=== PATIENT | male | born 1990 | race Caucasian/White ===

== ENCOUNTER 2023-04-16 01:36 | Emergency (ER) | payer MEDICAID, SELFPAY ==
[2023-04-16 01:40] VITALS: BP 162/92; PULSE 98; RESP 16; TEMP 36.1; O2SAT 96; BMI 34.7
--- NOTE | 2023-04-16 02:00 | CRLHL7_ITS ---
For Patients: As a result of the Century Cures Act, medical imaging exams and procedure reports are released immediately into your electronic medical record. You may view this report before your referring provider. If you have questions, please contact your health care provider. INDICATION: Right-sided abdominal pain. TECHNIQUE: CT abdomen and pelvis acquired with 98 cc Isovue 370 IV contrast. COMPARISON: None. FINDINGS: Lower chest: Right middle and bilateral lower lobe consolidation. Trace right pleural effusion. Liver: Unremarkable. Normal in size and attenuation. No suspicious masses. Gallbladder and bile ducts: Unremarkable. No stones or inflammation. No biliary ductal dilatation. Spleen: Unremarkable. Normal in size. No masses. Adrenal glands: Unremarkable. No nodules. Pancreas: Unremarkable. No mass or inflammation. Kidneys: Unremarkable. No suspicious masses, stones, or hydronephrosis. GI tract: Unremarkable. Normal in caliber. No evidence of obstruction. Normal appendix. Lymph nodes: No lymphadenopathy. Vasculature: Unremarkable. Omentum/Peritoneum/Abdominal Wall: Unremarkable. No free air or significant free fluid. Pelvis: Unremarkable. Bones: Unremarkable for age. IMPRESSION: 1. No acute abdominal or pelvic abnormality. 2. Right middle and bilateral lower lobe consolidation, likely representing a combination of atelectasis and infiltrates. Trace right pleural effusion. Please note that all CT scans at this facility use dose modulation, iterative reconstruction, and/or weight-based dosing when appropriate to reduce radiation dose to as low as reasonably achievable. Dictated by Jori Aggarwal MD @ 04/16/2023 3:25:39 AM (Electronically Signed)
[2023-04-16] MEDS: KETOROLAC 15 MG/ML inj IVP (02:10)
[2023-04-16 02:17] LABS: Lactate* 1.2 mmol/L (0.5-1.9)
[2023-04-16 02:19] LABS: Basophils Percent Auto 0.1 % (0.0-3.0); Eosinophils Percent Auto 1.7 % (0.0-7.0); Hematocrit 44.8 % (37.0-53.0); Hemoglobin* 15.6 gm/dL (13.5-17.5); Immature Granulocytes Pct Auto 0.8 %; Lymphocytes Percent Auto 15.3 % (20-44); Mean Corpuscular HGB Conc 35 gm/dL (32-36); Mean Corpuscular Hemoglobin 30 pg (26-34); Mean Corpuscular Volume 85 fL (80-100); Monocytes Percent Auto 10.9 % (0.0-11.0); Neutrophils Percent Auto 71.2 % (42.0-72.0); Platelet Count* 219 K/uL (140-440); RDW Coefficient of Variation % 12.6 % (11.5-15.5); Red Blood Count 5.29 m/uL (4.30-5.90); White Blood Count* 11.89 K/uL (4.50-11.00)
[2023-04-16 02:22] LABS: Slide Review Reflex No
--- NOTE | 2023-04-16 02:25 | ED.GENADULT ---
HPI - General Adult General Chief complaint: Abdominal Pain Stated complaint: Abdominal Pain - R side Time Seen by Provider: 04/16/23 01:49 Source: patient Mode of arrival: ambulatory Limitations: no limitations History of Present Illness HPI narrative: 32-year-old male presents the emergency department for evaluation of abdominal pain for the past 3 days. Reports the pain is up under the right rib/right mid abdomen area. It is not accompanied by vomiting. Denies nausea. Has also had a little bit of cough late last week that he reports has improved. No severe shortness of breath. No productive cough or fever. Did not improve with trial of Tylenol and Tums this evening. Denies associations with food but admittedly is having a hard time describing his symptoms to me. Denies trauma. No hematemesis or bloody stools. No history of pancreatitis, denies excessive alcohol use. Pain is achy and intermittent, seems to come in crampy waves by the way he is describing it. No dysuria or true back pain. Pain does radiate under the ribs a bit. No prior history of similar symptoms. No prior abdominal surgeries. Denies a family history of gallbladder disease or pancreatitis. No history of inflammatory bowel disease. States the pain was more bothersome today at about 3:00 p.m., was very bothersome for about a 1/2 hour and then has improved to about a 2/10, which it has been at for the last 10 hours. It is unclear what made him come to the emergency department in the middle of the night now. Past medical history benign per his report. No major long-term health problems. No prescription medications or allergies. Nonsmoker. ROS notable for the GI symptoms as above only, otherwise denies times 12 systems. Related Data Previous Rx's Medication Instructions Recorded levofloxacin 500 mg tablet 500 mg PO QHS 7 days #7 tabs 04/16/23 Allergies Allergy/AdvReac Type Severity Reaction Status Date / Time No Known Drug Allergies Allergy Verified 04/16/23 02:32 [facility] Social History Smoking Status: Never smoker Non-prescribed substance use: denies use Exam Narrative: Exam Narrative: Arrives not wearing any underwear with his genitals hanging out of his pants. Odd affect. Const: Vital Signs, click to edit/add: Vital Signs - 24 hr 04/16/23 01:40 Temperature 96.9 F L Pulse Rate [Left P ulse Oximeter] 98 Respiratory Rate 16 Blood Pressure [Ri ght Upper Arm] 162/92 H Pulse Oximetry 96 Oxygen Delivery Me thod Room Air Documenting provider has reviewed patient's vital signs: yes Common normals: no apparent distress General appearance: cooperative HENMT: Common normals: normocephalic Head and scalp: normocephalic Face and sinus: normal facial exam Mouth: oral and palatal mucosa normal Throat: posterior oropharynx normal Eye: Common normals: conjunctivae normal General eye: normal appearance of both eyes Conjunctiva: conjunctiva(e) normal Neck & C-Spine: Common normals: no lymphadenopathy Resp: Common normals: normal respiratory effort and clear to auscultation bilaterally Effort & inspection: able to speak in complete sentences Auscultation: clear to auscultation bilaterally Cardio: Common normals: regular rate, regular rhythm, S1 normal heart sound, S2 normal heart sound and no murmurs Rate: regular rate Rhythm: regular rhythm Heart sounds: S1 normal and S2 normal GI: Common normals: Normal to inspection, nondistended, normoactive bowel sounds present, soft to palpation, no hepatosplenomegaly and no masses Palpation: soft and no hepatosplenomegaly Other: No rebound tenderness or guarding. Negative Abdi sign. No CVA tenderness. Liver and spleen are not enlarged. No obvious mass. : Common normals: no CVA tenderness Bladder/kidney exam: no CVA tenderness Back & Pelvis: Common normals: no CVA tenderness Extremity: Common normals: normal to inspection Psych: Attitude: calm Insight: fair Judgement: fair Skin: Common normals: no rashes or lesions noted General skin exam: no rashes or lesions noted Course Course ED Course: Intermittent abdominal pain, under right rib suspicious for gallbladder disease verses diaphragmatic irritation from respiratory disease, pancreatitis, gastroenteritis, gastritis, possible on presentation of kidney stone, among others. Am concerned that his insight does not seem fully accurate, therefore I recommend labs come imaging. Will give Toradol 15 mg IV x1 and await findings. Reevaluation(s) Time of Reevaluation #1: 03:37 Reevaluation #1: Symptoms improved with Toradol. Discussed CT findings of right lower lobe pneumonia, otherwise no significant intra-abdominal process. Labs show some mild leukocytosis and a possible bladder infection but no other major intra-abdominal processes. This is reassuring. I recommended treatment of the pneumonia with Levaquin. Will give 750 p.o. x1 here and continue on 500 mg at bedtime nightly for another week. Counseled on Tylenol and ibuprofen for pain control. Alarm symptoms reviewed that would warrant ED presentation. All questions answered. Vital Signs Vital signs: Initial Vital Signs Temperature 96.9 F L 04/16/23 01:40 Temperature Source Temporal Artery Scan 04/16/23 01:40 Pulse Rate 98 04/16/23 01:40 Respiratory Rate 16 04/16/23 01:40 Blood Pressure 162/92 H 04/16/23 01:40 Blood Pressure Mean 115 H 04/16/23 01:40 Blood Pressure Position Sitting 04/16/23 01:40 Pulse Oximetry 96 04/16/23 01:40 Oxygen Delivery Method Room Air 04/16/23 01:40 Vital Signs Temperature 96.9 F L 04/16/23 01:40 Pulse Rate 98 04/16/23 01:40 Respiratory Rate 16 04/16/23 01:40 Blood Pressure 162/92 H 04/16/23 01:40 Pulse Oximetry 96 04/16/23 01:40 Oxygen Delivery Method Room Air 04/16/23 01:40 Temperature 96.9 F L 04/16/23 01:40 Pulse Rate 98 04/16/23 01:40 Respiratory Rate 16 04/16/23 01:40 Blood Pressure 162/92 H 04/16/23 01:40 Pulse Oximetry 96 04/16/23 01:40 Oxygen Delivery Method Room Air 04/16/23 01:40 Medications Administered Medications: Generic Name Dose Route Start Last Admin Trade Name Freq PRN Reason Stop Dose Admin Ketorolac Tromethamine 15 mg 04/16/23 02:00 04/16/23 02:10 Ketorolac 15 Mg/Ml Inj IVP 04/16/23 02:01 15 mg ONCE ONE Administration Medical Decision Making Lab Data Lab results reviewed: Yes I reviewed the patient's lab results Lab results narrative: Mild leukocytosis, suspicious for mild bladder infection. Negative COVID. Negative intra-abdominal finding. Labs: Lab Results 04/16/23 04/16/23 Range/Units 02:00 02:10 WBC 11.89 H (4.50-11.00) K/uL RBC 5.29 (4.30-5.90) m/uL Hgb 15.6 (13.5-17.5) gm/dL Hct 44.8 (37.0-53.0) % MCV 85 (80-100) fL MCH 30 (26-34) pg MCHC 35 (32-36) gm/dL RDW Coeff of Amy 12.6 (11.5-15.5) % Plt Count 219 (140-440) K/uL Neut % (Auto) 71.2 (42.0-72.0) % Lymph % (Auto) 15.3 L (20-44) % [place] % (Auto) 10.9 (0.0-11.0) % Eos % (Auto) 1.7 (0.0-7.0) % Baso % (Auto) 0.1 (0.0-3.0) % Neut # (Auto) 8.50 H (1.7-7.0) K/uL Lymph # (Auto) 1.80 (0.90-2.90) K/uL [place] # (Auto) 1.30 H (0.00-0.90) K/UL Eos # (Auto) 0.20 (0.00-0.50) K/uL Baso # (Auto) 0.00 (0.00-0.30) K/uL Abs Immat Gran (auto) 0.10 (0.00-0.30) K/uL Imm/Tot Granulo (auto) 0.8 % Sodium 139 (135-149) mmol/L Potassium 3.5 L (3.6-5.1) mmol/L Chloride 105 (96-114) mmol/L Carbon Dioxide 24 (20-32) mmol/L Anion Gap 10 (7-15) mEq/L BUN 16 (5-24) mg/dL Creatinine 0.7 (0.5-1.5) mg/dL Estimated Creat Clear 135.45 Estimated GFR 125 ml/min Glucose 108 (60-115) mg/dL Lactate 1.2 (0.5-1.9) mmol/L Calcium 9.3 (8.4-10.6) mg/dL Total Bilirubin 1.9 H (0.1-1.5) mg/dL AST 34 (12-35) U/L ALT 38 (4-50) U/L Alkaline Phosphatase 64 (40-150) U/L C-Reactive Protein 8.7 H (0.5-1.0) mg/dL Total Protein 8.2 (6.0-8.3) g/dL Albumin 4.4 (3.3-5.0) g/dL Lipase 85 (23-300) U/L Urine Color Moodus A (Yellow) Urine Appearance Clear (Clear) Urine pH 5.0 (5.0-8.5) Ur Specific [place] >= 1.030 (1.000-1.030) Urine Protein 2+ A (Negative) Urine Glucose (UA) Negative (Negative) Urine Ketones 1+ A (Negative) Urine Blood Trace-intact A (Negative) Urine Nitrite Positive A (Negative) Urine Bilirubin 2+ A (Negative) Urine Urobilinogen 0.2 (0.2-1.0) Ur Leukocyte Esterase Negative (Negative) Urine RBC 2-5 A (0-2) Urine WBC 2-5 (0-5) Ur Squamous Epith Cells Few (None-Few) Urine Bacteria Few A (None) Urine Mucus Moderate A (None) SARS-CoV-2 (PCR) Negative SARS-CoV-2 (Negative) Influenza Type A (PCR) Negative PCR FLU A (Negative) Influenza Type B (PCR) Negative PCR FLU B (Negative) RSV (PCR) Negative PCR RSV (Negative) Imaging Data CT scan - abdomen: Attestation: I have reviewed the pertinent imaging results. My impression: Right lower lobe pneumonia, abdomen normal Radiologist's impression: IMPRESSION: 1. No acute abdominal or pelvic abnormality. 2. Right middle and bilateral lower lobe consolidation, likely representing a combination of atelectasis and infiltrates. Trace right pleural effusion. Discharge Plan Discharge Clinical Impression: Right lower lobe pneumonia Patient Disposition: Home, Self-Care Condition: Stable Instructions: Community Acquired Pneumonia (ED) Additional Instructions: As we discussed, there were no major intra-abdominal findings. It looks like you have a pneumonia in your lower right lung. This presses on the diaphragm and causes symptoms very similar to gallbladder attacks. There also may be a mild bladder infection. The antibiotic that we will use to treat the pneumonia will cover both infections very well. It is important a drink lots of water for the next few days. You have been given your 1st dose of your antibiotic here in the emergency department. Continue taking additional doses once daily at bedtime for the next week. I have sent additional medications to your pharmacy. You will likely cough for about another month. He will likely have some intermittent pain for about 2 weeks. For pain, use Tylenol 1000 mg every 6 hours and/or ibuprofen 600 mg every 6 hours for pain. Come back to the emergency department if you have severe shortness of breath, persistently coughing up blood, or other red flag type symptoms. Activity Level: Activity as Tolerated Discharge Diet: Regular Prescriptions: New levofloxacin 500 mg tablet 500 mg PO QHS 7 Days Qty: 7 0RF Follow Up/Referrals: Provider,Not a Local [Primary Care Provider] - Stand Alone Forms: [employer] Info Instructions
[2023-04-16 02:48] LABS: PCR FLU A Negative PCR FLU A (Negative); PCR FLU B Negative PCR FLU B (Negative); PCR RSV Negative PCR RSV (Negative); SARS PCR* Negative SARS-CoV-2 (Negative)
[2023-04-16 02:48] LABS: Albumin* 4.4 g/dL (3.3-5.0); Appearance Urine Clear (Clear); Bilirubin Urine 2+ (Negative); Blood Urine Trace-intact (Negative); Chloride* 105 mmol/L (96-114); Color Urine Orange (Yellow); Glucose Urine Negative (Negative); Ketones Urine 1+ (Negative); Leukocyte Esterase Urine Negative (Negative); Nitrite Urine Positive (Negative); Protein Urine 2+ (Negative); Specific Gravity Urine >= 1.030 (1.000-1.030); Urobilinogen Urine 0.2 (0.2-1.0)
[2023-04-16 02:49] LABS: Potassium* 3.5 mmol/L (3.6-5.1); Sodium* 139 mmol/L (135-149)
[2023-04-16 02:51] LABS: Bilirubin Total* 1.9 mg/dL (0.1-1.5); Creatinine* 0.7 mg/dL (0.5-1.5); Est. Creatinine Clearance* 135.45; Estimated Glomerular Filt Rate 125 ml/min
[2023-04-16 02:52] LABS: Alanine Aminotransferase* 38 U/L (4-50); Alkaline Phosphatase* 64 U/L (40-150); Anion Gap 10 mEq/L (7-15); Aspartate Amino Transferase* 34 U/L (12-35); Blood Urea Nitrogen* 16 mg/dL (5-24); Calcium* 9.3 mg/dL (8.4-10.6); Carbon Dioxide* 24 mmol/L (20-32); Glucose* 108 mg/dL (60-115); Lipase* 85 U/L (23-300); Total Protein* 8.2 g/dL (6.0-8.3)
[2023-04-16 02:55] LABS: C Reactive Protein* 8.7 mg/dL (0.5-1.0)
[2023-04-16 02:59] LABS: Squamous Epithelial Cell Urine Few (None-Few)
[2023-04-16 03:00] LABS: Bacteria Urine Few; Mucus Urine Moderate
[2023-04-16] MEDS: levoFLOXacin 750 MG TABLET PO (03:49)
[2023-04-16 03:50] VITALS: BP 148/58; PULSE 64; RESP 16; O2SAT 99
== END 2023-04-16 03:53 | disposition home or self-care (01) ==
PROVIDERS: Emergency Provider Family Medicine
DX: J18.9 Pneumonia, unspecified organism (principal)
CPT/HCPCS: 36415; 74177; 80053; 81003; 81015; 83605; 83690; 85025; 86140; 87086; 87631; 96374; 99284; 99285; A9270; J1885; Q9967

== ENCOUNTER 2023-05-09 10:17 | Emergency (ER) | payer MEDICAID, SELFPAY ==
[2023-05-09] VITALS (67 sets, daily range): BP systolic 115–138; BP diastolic 84–109; PULSE 82–95; RESP 16; TEMP 36.3; O2SAT 86–100; BMI 33.9
--- NOTE | 2023-05-09 11:06 | US_ITS ---
INDICATION: RIGHT LEG SWELLING. TECHNIQUE: GRAYSCALE, COLOR DOPPLER AND POWER DOPPLER EVALUATION OF THE RIGHT LOWER EXTREMITY VENOUS STRUCTURES. COMPARISON: NONE. FINDINGS: EXTENSIVE OCCLUSIVE HYPOECHOIC CLOT IS PRESENT THROUGHOUT THE RIGHT LOWER EXTREMITY INVOLVING THE RIGHT EXTERNAL ILIAC VEIN, COMMON FEMORAL VEIN, FEMORAL VEIN, DEEP FEMORAL VEIN, POPLITEAL VEIN, PERONEAL VEINS AND POSTERIOR TIBIAL VEINS. LACK OF DOPPLER FLOW AND LACK OF COMPRESSIBILITY. LEFT COMMON FEMORAL VEIN IS PATENT. PROXIMAL GREATER SAPHENOUS VEIN IS OCCLUDED. IMPRESSION: EXTENSIVE DVT RIGHT LOWER EXTREMITY INCLUDING INVOLVEMENT OF THE EXTERNAL ILIAC VEIN. CT HAS BEEN SCHEDULED FOR FURTHER EVALUATION. THE REFERRING PROVIDER WAS NOTIFIED BY THE FEDERAL JUDGE AT 11:25 A.M..
--- NOTE | 2023-05-09 11:15 | ED.GENADULT ---
[facility] - General Adult General Date Seen: 05/09/23 Chief complaint: Lower Extremity Swelling Stated complaint: R leg swelling- wants a CT Time Seen by Provider: 05/09/23 10:54 Source: patient Mode of arrival: ambulatory Limitations: no limitations History of Present Illness HPI narrative: Patient is a 32-year-old male with no pertinent medical problems presenting for right leg pain. He states he 1st injured the right ankle a month ago when he slipped and fell. After that he had swelling of the leg but the swelling did improve. With the past week he noticed increased swelling to the right leg and states now swelling is the worst it has ever been. There is some mild thigh pain but he attributes that to decompensation after not walking much due to the injured ankle. States the pain is relatively mild and he does have full range of motion of the right leg. No history of blood clots. Denies chest pain or shortness of breath. Denies numbness. No other concerns noted at this time. Related Data Home Medications Medication Instructions Recorded Confirmed No Known Home Medications 05/09/23 05/09/23 Allergies Allergy/AdvReac Type Severity Reaction Status Date / Time No Known Drug Allergies Allergy Verified 05/09/23 12:18 Review of Systems Narrative: Pertinent systems reviewed and negative unless stated in HPI PFSH PFS Social History Smoking Status: Never smoker Do you use any of these nicotine containing products: None Second hand tobacco smoke exposure: No How often do you have a drink containing alcohol: never How often do you have six or more drinks on one occasion: Never AUDIT-C Alcohol total score: 0 Non-prescribed substance use: denies use service: No Exam Narrative: Exam Narrative: Const: Well-nourished, Well-developed, in no distress Eyes: PERRL, no conjunctival injection, and symmetrical lids HENT: Atraumatic external nose and ears. Moist mucous membranes. CV: Pulses +2 bilateral lower extremity MSK:Extremities w/o deformity, Normal Active ROM, diffuse right lower extremity swelling compared to the left Skin: Warm, Dry. No rashes or lesions. Neuro: Normal Muscle tone, No focal neurological deficits. Psych: Awake, Alert, & Oriented x3. Appropriate mood and affect. Const: Vital Signs, click to edit/add: Vital Signs - 24 hr 05/09/23 10:23 Temperature 97.4 F L Pulse Rate [Right Pulse Oximeter] 95 Respiratory Rate 16 Blood Pressure [Ri ght Upper Arm] 138/88 Pulse Oximetry 97 Oxygen Delivery Me thod Room Air Course Vital Signs Vital signs: Initial Vital Signs Temperature 97.4 F L 05/09/23 10:23 Temperature Source Temporal Artery Scan 05/09/23 10:23 Pulse Rate 95 05/09/23 10:23 Respiratory Rate 16 05/09/23 10:23 Blood Pressure 138/88 05/09/23 10:23 Blood Pressure Mean 104 05/09/23 10:23 Blood Pressure Position Sitting 05/09/23 10:23 Pulse Oximetry 97 05/09/23 10:23 Oxygen Delivery Method Room Air 05/09/23 10:23 Vital Signs Temperature 97.4 F L 05/09/23 10:23 Pulse Rate 95 05/09/23 10:23 Respiratory Rate 16 05/09/23 10:23 Blood Pressure 138/88 05/09/23 10:23 Pulse Oximetry 97 05/09/23 10:23 Oxygen Delivery Method Room Air 05/09/23 10:23 Temperature 97.4 F L 05/09/23 10:23 Pulse Rate 95 05/09/23 10:23 Respiratory Rate 16 05/09/23 10:23 Blood Pressure 138/88 05/09/23 10:23 Pulse Oximetry 97 05/09/23 10:23 Oxygen Delivery Method Room Air 05/09/23 10:23 Medications Administered Medications: Generic Name Dose Route Start Last Admin Trade Name Freq PRN Reason Stop Dose Admin Heparin Sodium/Dextrose 25,000 unit in 500 mls @ 0 mls/hr 05/09/23 13:15 05/09/23 13:31 Heparin IV 1,500 unit/hr .Q0M BARRETT 30 mls/hr Administration Protocol Per Protocol Discontinued Medications Generic Name Dose Route Start Last Admin Trade Name Freq PRN Reason Stop Dose Admin Heparin Sodium (Porcine) 7,600 unit 05/09/23 13:08 05/09/23 13:30 Heparin 5,000 Unit/0.5 Ml Inj 80 unit/kg (7600 unit) 05/09/23 13:09 7,600 unit IVP Administration ONCE ONE Medical Decision Making MDM Narrative Medical decision making narrative: Patient is a 32-year-old male presenting for right leg swelling. So once been on for a week. No history of clotting disorders. Ultrasound the right lower extremity was ordered. It returned showing extensive clot burden and every significant vein in the right lower extremity. There is able to ultrasound up to the getting of the internal iliac vein in saw clot burden up there too. When I spoke to him he said he had some chest pain mildly few days ago that went away quickly. Or he has not heard having symptoms of pulmonary embolism with his history I am concerned. Will order PE study. I also spoke to the radiologist about to finish evaluating this blood clot and was recommended do a CT with IV contrast. This was ordered. It shows bilateral subsegmental pulmonary emboli along with clot burden seen in the right main pulmonary artery. Imaging of the veins shows clot burden all way up into the distal IVC. Considering his significant amount of clot burden I did speak to [facility]. I spoke to their grain combine driver Dr. Winter who recommend starting the patient on heparin was not think he needs an IV filter at this time. She does think get is it is best interest to be transferred to a higher level of care in case he needs further intervention. Patient is agreeable to this plan. Also ordered CBC and is BMP along with coags. These returned showing no concerning findings. I spoke to the hospitalist Dr. Bonilla who accepted the patient for transfer. Lab Data Labs: Lab Results 05/09/23 Range/Units 13:08 WBC 8.38 (4.50-11.00) K/uL RBC 4.93 (4.30-5.90) m/uL Hgb 13.5 (13.5-17.5) gm/dL Hct 41.0 (37.0-53.0) % MCV 83 (80-100) fL MCH 27 (26-34) pg MCHC 33 (32-36) gm/dL RDW Coeff of Amy 13.0 (11.5-15.5) % Plt Count 367 (140-440) K/uL Neut % (Auto) 71.2 (42.0-72.0) % Lymph % (Auto) 15.0 L (20-44) % [place] % (Auto) 10.1 (0.0-11.0) % Eos % (Auto) 3.5 (0.0-7.0) % Baso % (Auto) 0.1 (0.0-3.0) % Neut # (Auto) 5.96 (1.7-7.0) K/uL Lymph # (Auto) 1.30 (0.90-2.90) K/uL [place] # (Auto) 0.80 (0.00-0.90) K/UL Eos # (Auto) 0.29 (0.00-0.50) K/uL Baso # (Auto) 0.01 (0.00-0.30) K/uL Abs Immat Gran (auto) 0.01 (0.00-0.30) K/uL Imm/Tot Granulo (auto) 0.1 % INR 1.13 H (0.91-1.10) APTT 38 H (23-33) Seconds Sodium 137 (135-149) mmol/L Potassium 4.1 (3.6-5.1) mmol/L Chloride 101 (96-114) mmol/L Carbon Dioxide 27 (20-32) mmol/L Anion Gap 9 (7-15) mEq/L BUN 15 (5-24) mg/dL Creatinine 0.8 (0.5-1.5) mg/dL Estimated Creat Clear 118.52 Estimated GFR 120 ml/min Glucose 106 (60-115) mg/dL Calcium 9.3 (8.4-10.6) mg/dL Imaging Data Venous US: Radiologist's impression: EXTENSIVE DVT RIGHT LOWER EXTREMITY INCLUDING INVOLVEMENT OF THE EXTERNAL ILIAC VEIN. CT HAS BEEN SCHEDULED FOR FURTHER EVALUATION. THE REFERRING PROVIDER WAS NOTIFIED BY THE BAKE ROOM WORKER AT 11:[address] scan abdomen and pelvis: Radiologist's impression: EXTENSIVE DEEP VENOUS THROMBOSIS WITHIN THE RIGHT THIGH EXTENDING FROM THE FEMORAL VEIN CEPHALAD INTO THE RIGHT EXTERNAL ILIAC VEIN, RIGHT COMMON ILIAC VEIN AND DISTAL ASPECT OF THE IVC. NO COMPRESSIVE MASS IS PRESENT. CTA chest: Radiologist's impression: SMALL BILATERAL PULMONARY EMBOLI ARE PRESENT WITHIN THE SUBSEGMENTAL LOWER LOBE VESSELS BILATERALLY. IN ADDITION, THERE IS PULMONARY EMBOLISM WITHIN THE MAIN RIGHT PA. THE RV/LV RATIO IS LESS THAN 1. NO REFLUX OF CONTRAST INTO THE INFERIOR VENA CAVA. THERE IS NO HIATAL HERNIA. NORMAL LYMPH NODES IN THE THORAX. NO THYROID LESION WITHIN THE VISUALIZED UPPER MEDIASTINUM. LINEAR DENSITIES ARE PRESENT WITHIN BOTH LOWER LOBES, THE LINGULA AND RIGHT MIDDLE LOBE. NO PLEURAL EFFUSION. NO PNEUMOTHORAX. NO CHF. NO FRACTURE IS PRESENT. IMPRESSION: BILATERAL PULMONARY EMBOLI. DEPENDENT AREAS OF ATELECTASIS BILATERALLY. NO EVIDENCE OF RIGHT HEART STRAIN. Discharge Plan Discharge Clinical Impression: DVT (deep venous thrombosis) Qualifiers: DVT location: lower extremity Affected thrombotic vein of extremity: other lower extremity vein Chronicity: unspecified Laterality: right Qualified Code(s): I82.491 - Acute embolism and thrombosis of other specified deep vein of right lower extremity Pulmonary embolism Qualifiers: Pulmonary embolism type: multiple subsegmental (without acute cor pulmonale) Qualified Code(s): I26.94 - Multiple subsegmental pulmonary emboli without acute cor pulmonale Patient Disposition: [facility] Condition: Stable Prescriptions: No Action No Known Home Medications Follow Up/Referrals: Provider,Not a Local [Primary Care Provider] - Stand Alone Forms: [employer] Info Instructions
--- NOTE | 2023-05-09 11:37 | CT_ITS ---
INDICATION: EXTENSIVE DVT COMPARISON: VENOUS ULTRASOUND STUDY EARLIER TODAY TECHNIQUE: POSTCONTRAST CT ABDOMEN AND PELVIS. 95 ML ISOVUE 370 INTRAVENOUS CONTRAST. FINDINGS: EXTENSIVE DEEP VENOUS THROMBOSIS IS PRESENT WITHIN THE RIGHT COMMON ILIAC VEIN EXTENDING CAUDAL INTO THE COMMON FEMORAL, SUPERFICIAL FEMORAL AND DEEP FEMORAL VEINS ALONG WITH THE EXTERNAL ILIAC VEIN. CLOT ALSO APPEARS TO EXTEND INTO THE DISTAL ASPECT OF THE IVC, JUST ABOVE THE BIFURCATION. THE LEFT ILIAC VENOUS SYSTEM APPEARS PATENT. NO HYDRONEPHROSIS. KIDNEYS NORMAL. NORMAL ADRENAL GLANDS. NORMAL PANCREAS. THE SPLEEN IS NORMAL. NORMAL LIVER. GALLBLADDER INCOMPLETELY DISTENDED. NO FREE AIR, FREE FLUID OR ADENOPATHY. MILD INFLAMMATORY CHANGES ARE PRESENT WITHIN THE RIGHT UPPER THIGH ASSOCIATED WITH DVT. BLADDER NORMAL. NO PELVIC MASS. THERE IS NO COMPRESSIVE LESION. NO BOWEL OBSTRUCTION. NO EVIDENCE OF APPENDICITIS. NORMAL OSSEOUS STRUCTURES. IMPRESSION: EXTENSIVE DEEP VENOUS THROMBOSIS WITHIN THE RIGHT THIGH EXTENDING FROM THE FEMORAL VEIN CEPHALAD INTO THE RIGHT EXTERNAL ILIAC VEIN, RIGHT COMMON ILIAC VEIN AND DISTAL ASPECT OF THE IVC. NO COMPRESSIVE MASS IS PRESENT. CALLED TO DR. EISENBERG AT [phone].
--- NOTE | 2023-05-09 11:37 | CT_ITS ---
INDICATION: EXTENSIVE LOWER EXTREMITY DVT COMPARISON: ULTRASOUND VENOUS STUDY EARLIER TODAY TECHNIQUE: CTA CHEST PERFORMED AFTER THE INTRAVENOUS ADMINISTRATION OF 95 ML ISOVUE 370 INTRAVENOUS CONTRAST. FINDINGS: SMALL BILATERAL PULMONARY EMBOLI ARE PRESENT WITHIN THE SUBSEGMENTAL LOWER LOBE VESSELS BILATERALLY. IN ADDITION, THERE IS PULMONARY EMBOLISM WITHIN THE MAIN RIGHT PA. THE RV/LV RATIO IS LESS THAN 1. NO REFLUX OF CONTRAST INTO THE INFERIOR VENA CAVA. THERE IS NO HIATAL HERNIA. NORMAL LYMPH NODES IN THE THORAX. NO THYROID LESION WITHIN THE VISUALIZED UPPER MEDIASTINUM. LINEAR DENSITIES ARE PRESENT WITHIN BOTH LOWER LOBES, THE [place] AND RIGHT MIDDLE LOBE. NO PLEURAL EFFUSION. NO PNEUMOTHORAX. NO CHF. NO FRACTURE IS PRESENT. IMPRESSION: BILATERAL PULMONARY EMBOLI. DEPENDENT AREAS OF ATELECTASIS BILATERALLY. NO EVIDENCE OF RIGHT HEART STRAIN. CALLED TO DR. FAINA Patel 24.
[2023-05-09 13:17] LABS: Hemoglobin* 13.5 gm/dL (13.5-17.5); Mean Corpuscular HGB Conc 33 gm/dL (32-36); Mean Corpuscular Hemoglobin 27 pg (26-34); Mean Corpuscular Volume 83 fL (80-100); Neutrophils Percent Auto 71.2 % (42.0-72.0); Platelet Count* 367 K/uL (140-440); Red Blood Count 4.93 m/uL (4.30-5.90); White Blood Count* 8.38 K/uL (4.50-11.00)
[2023-05-09 13:18] LABS: Basophils Absolute Auto 0.01 K/uL (0.00-0.30); Basophils Percent Auto 0.1 % (0.0-3.0); Eosinophils Absolute Auto 0.29 K/uL (0.00-0.50); Eosinophils Percent Auto 3.5 % (0.0-7.0); Immature Granulocytes Abs Auto 0.01 K/uL (0.00-0.30); Immature Granulocytes Pct Auto 0.1 %; Monocytes Percent Auto 10.1 % (0.0-11.0); Neutrophils Absolute Auto 5.96 K/uL (1.7-7.0)
[2023-05-09 13:24] LABS: Slide Review Reflex No
[2023-05-09] MEDS: HEPARIN 5,000 UNIT/0.5 ML INJ 7600 UNIT IVP (13:30)
[2023-05-09] MEDS: HEPARIN 25,000 UNIT/500 ML BAG 30 UNIT IV (13:31)
[2023-05-09 13:41] LABS: Chloride* 101 mmol/L (96-114); Potassium* 4.1 mmol/L (3.6-5.1); Sodium* 137 mmol/L (135-149)
[2023-05-09 13:44] LABS: Anion Gap 9 mEq/L (7-15); Carbon Dioxide* 27 mmol/L (20-32); Creatinine* 0.8 mg/dL (0.5-1.5); Est. Creatinine Clearance* 118.52; Estimated Glomerular Filt Rate 120 ml/min
[2023-05-09 13:45] LABS: Blood Urea Nitrogen* 15 mg/dL (5-24); Calcium* 9.3 mg/dL (8.4-10.6); Glucose* 106 mg/dL (60-115)
[2023-05-09 13:46] LABS: INR 1.13 (0.91-1.10); Prothrombin Time 15.3 Seconds
[2023-05-09 13:47] LABS: Partial Thromboplastin Time* 38 Seconds (23-33)
--- NOTE | 2023-05-09 13:48 | ED.NURSE ---
Pulse found via doppler in RLE
[2023-05-09 15:46] LABS: Troponin, Point-of-Care* 0.01 ng/ml (0.01-0.04)
[2023-05-09 20:42] LABS: Partial Thromboplastin Time* 133 Seconds (23-33)
== END 2023-05-09 21:16 | disposition short-term general hospital (02) ==
PROVIDERS: Emergency Provider Student in an Organized Health Care Education/Training Program
DX: I82.401 Acute embolism and thrombosis of unspecified deep veins of right lower extremity (principal); I26.99 Other pulmonary embolism without acute cor pulmonale
CPT/HCPCS: 36415; 71275; 74177; 80048; 84484; 85025; 85027; 85610; 85730; 93005; 93971; 94761; 96374; 99284; 99285; J1644; Q9967

== ENCOUNTER 2023-05-09 21:07 | Outpatient (CLI) | payer MEDICAID, SELFPAY | END 2023-05-09 21:08 | disposition home or self-care (01) | LOC: AMB 05-11 10:58 | PROVIDERS: Visit Provider Family Medicine | DX: I26.99 Other pulmonary embolism without acute cor pulmonale (principal); I82.409 Acute embolism and thrombosis of unspecified deep veins of unspecified lower extremity | CPT/HCPCS: A0425; A0426 ==

== ENCOUNTER 2023-12-12 14:44 | Emergency (ER) | payer MEDICAID, SELFPAY ==
[2023-12-12] VITALS (16 sets, daily range): BP systolic 121–170; BP diastolic 83–103; PULSE 53–83; RESP 18; TEMP 36.5; O2SAT 94–99; BMI 33.9
--- NOTE | 2023-12-12 15:03 | ED.CHESTPAIN ---
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 He then has been off of his Eliquis for approximately 1 month. He thin had a provoked DVT CT when he had fracture of his toes and ankle injury on the right foot and did not seek medical attention he states. After injury to his ankle he also experienced a bout of COVID. He had initially noted swelling after the injury that got better and then suddenly got much worse- He ended up having extensive DVT into his groin up to the lower IVC in April 2023. This was associated with PE. He was started on heparin and transferred to [place]. Since that time patient had been on Eliquis up until a month ago. He was told to stop any is scheduled for lupus anticoagulant draw on Sunday. Arvin notes the onset of some left-sided chest discomfort approximately 4 days ago. He states that on day 2 the pain was actually worse but now it has been improving. He is not short of breath, has not had a cough, no fever or chills and has not been experiencing any increased fatigue or shortness of breath with exertion. In fact, he states he walked down town from his home and had no problem. Elisabeth hines cannot recall any activity or injury that may have caused this. He notes that he when he moves the pain seems to be a little bit worse. When he takes a deep breath it does not increase the discomfort. He has had no history of IV drug use, pericarditis, fevers. He does not think that his right lower leg is swollen. States that it was swollen up until about 2 months ago. Denies pain in his leg or redness. Related Data Home Medications ?Medication ?Instructions ?Recorded ?Confirmed No Known Home Medications 05/09/23 05/09/23 Allergies Allergy/AdvReac Type Severity Reaction Status Date / Time No Known Drug Allergies Allergy Verified 05/09/23 12:18 Review of Systems Status of ROS Reports: 10 or more systems reviewed and unremarkable except as noted in History and below Const Denies: fever, chills or fatigue Eyes Denies: change in vision ENMT Denies: throat pain, neck pain or nasal congestion Cardio Reports: chest pain; Denies: palpitations, edema, swelling of feet/ankles, lightheadedness or shortness of breath with exertion Resp Denies: shortness of breath or cough GI Denies: abdominal pain, nausea or vomiting Musculo Denies: neck pain Integ/Breast Denies: rash, itching or redness Endo Denies: fatigue PFSH PFSH Social History Smoking Status: Never smoker Do you use any of these nicotine containing products: None Second hand tobacco smoke exposure: No How often do you have a drink containing alcohol: never How often do you have six or more drinks on one occasion: Never AUDIT-C Alcohol total score: 0 Non-prescribed substance use: denies use service: No Exam Narrative Exam Narrative: Arvin is alert and oriented. Very pleasant young man in no acute distress. External ears eyes nose clear. Heart with a regular rate and rhythm without murmur or rub. Lungs are clear in all lung [place]. Palpation over the anterior and lateral chest wall on the left does not yield significant discomfort. Abdomen soft nontender. Lower extremities without significant edema. No calf tenderness with palpation. Moving all extremities. Const Vital Signs, click to edit/add: Vital Signs - 24 hr 12/12/23 14:48 12/12/23 15:11 12/12/23 15:15 Temperature 97.7 F Pulse Rate 75 64 Pulse Rate [Pulse Oximeter] 66 Respiratory Rate 18 Blood Pressure Blood Pressure [Right Upper Arm] 170/103 H Pulse Oximetry 99 96 96 Oxygen Delivery Method Room Air 12/12/23 15:30 12/12/23 15:32 12/12/23 15:45 Temperature Pulse Rate 59 L 78 Pulse Rate [Pulse Oximeter] Respiratory Rate Blood Pressure 133/94 H Blood Pressure [Right Upper Arm] Pulse Oximetry 98 94 Oxygen Delivery Method 12/12/23 16:00 12/12/23 16:40 12/12/23 16:41 Temperature Pulse Rate 77 83 58 L Pulse Rate [Pulse Oximeter] Respiratory Rate Blood Pressure 141/85 H Blood Pressure [Right Upper Arm] Pulse Oximetry 96 95 96 Oxygen Delivery Method 12/12/23 16:45 12/12/23 17:00 12/12/23 17:01 Temperature Pulse Rate 76 75 53 L Pulse Rate [Pulse Oximeter] Respiratory Rate Blood Pressure 130/93 H Blood Pressure [Right Upper Arm] Pulse Oximetry 95 95 95 Oxygen Delivery Method 12/12/23 17:02 12/12/23 17:16 12/12/23 17:30 Temperature Pulse Rate 65 66 61 Pulse Rate [Pulse Oximeter] Respiratory Rate Blood Pressure 121/83 Blood Pressure [Right Upper Arm] Pulse Oximetry 96 96 95 Oxygen Delivery Method 12/12/23 17:32 Temperature Pulse Rate 68 Pulse Rate [Pulse Oximeter] Respiratory Rate Blood Pressure 128/83 Blood Pressure [Right Upper Arm] Pulse Oximetry 96 Oxygen Delivery Method Documenting provider has reviewed patient's vital signs: yes Course Course ED Course: Differential diagnosis includes but is not limited to recurrent PE, pericarditis, angina, pneumonia, musculoskeletal discomfort. Will place IV and draw labs to include CBC, apprehensive panel, troponin, magnesium, D-dimer chest x-ray and EKG. EKG is reassuring at this time. Reevaluation(s) Reevaluation #1: Labs are reassuring to include a normal D-dimer, negative troponin. Will do a trial of Toradol 15 mg IV. Reevaluation #2: Patient has had resolution of his discomfort. Blood pressure has now normalized as well. Vital Signs Vital signs: Initial Vital Signs Temperature 97.7 F 12/12/23 14:48 Temperature Source Temporal Artery Scan 12/12/23 14:48 Pulse Rate 66 12/12/23 14:48 Pulse Rhythm Regular 12/12/23 14:48 Respiratory Rate 18 12/12/23 14:48 Blood Pressure 170/103 H 12/12/23 14:48 Blood Pressure Mean 125 H 12/12/23 14:48 Blood Pressure Position Sitting 12/12/23 14:48 Pulse Oximetry 99 12/12/23 14:48 Oxygen Delivery Method Room Air 12/12/23 14:48 Vital Signs Temperature 97.7 F 12/12/23 14:48 Pulse Rate 66 12/12/23 14:48 Respiratory Rate 18 12/12/23 14:48 Blood Pressure 170/103 H 12/12/23 14:48 Pulse Oximetry 99 12/12/23 14:48 Oxygen Delivery Method Room Air 12/12/23 14:48 Temperature 97.7 F 12/12/23 14:48 Pulse Rate 68 12/12/23 17:32 Respiratory Rate 18 12/12/23 14:48 Blood Pressure 128/83 12/12/23 17:32 Pulse Oximetry 96 12/12/23 17:32 Oxygen Delivery Method Room Air 12/12/23 14:48 Medications Administered Medications: Discontinued Medications Generic Name Dose Route Start Last Admin Trade Name Courtney PRN Reason Stop Dose Admin Ketorolac Tromethamine 15 mg 12/12/23 16:12 12/12/23 16:36 Ketorolac 15 Mg/Ml Inj IVP 12/12/23 16:13 15 mg ONCE ONE Administration MDM - Chest Pain MDM Narrative Medical decision making narrative: 1. Atypical chest pain-EKG reassuring with no evidence of ST or T-wave changes or arrhythmia. No evidence of right heart strain. Troponin is negative x2. Most importantly we have a D-dimer that is within normal limits. An ultrasound of the right lower extremity shows residual organized chronic clot. It is nonocclusive. Patient has had resolution of his discomfort with Toradol 15 mg IV. Vital signs are reassuring with no evidence of tachycardia or hypoxia. At this time recommend follow-up per his guidance. I will let him know that we did do and lupus anticoagulant today and that his physician may cancel the blood draw on Sunday and they may use are values. 2. Disposition-home at this time. Return for shortness of breath, chest pain increasing, onset of new symptoms and as needed. Medical Records Data Attestation: I reviewed the patient's medical records. Lab Data Attestation: I reviewed the patient's lab results. Labs: Lab Results 12/12/23 12/12/23 Range/Units 15:30 15:45 WBC 5.90 (4.50-11.00) K/uL RBC 5.71 (4.30-5.90) m/uL Hgb 16.7 (13.5-17.5) gm/dL Hct 48.3 (37.0-53.0) % MCV 85 (80-100) fL MCH 29 (26-34) pg MCHC 35 (32-36) gm/dL RDW Coeff of Amy 12.5 (11.5-15.5) % Plt Count 162 (140-440) K/uL Neut % (Auto) 63.5 (42.0-72.0) % Lymph % (Auto) 27.8 (20-44) % [place] % (Auto) 7.3 (0.0-11.0) % Eos % (Auto) 1.2 (0.0-7.0) % Baso % (Auto) 0.0 (0.0-3.0) % Neut # (Auto) 3.75 (1.7-7.0) K/uL Lymph # (Auto) 1.64 (0.90-2.90) K/uL [place] # (Auto) 0.40 (0.00-0.90) K/UL Eos # (Auto) 0.07 (0.00-0.50) K/uL Baso # (Auto) 0.00 (0.00-0.30) K/uL Abs Immat Gran (auto) 0.01 (0.00-0.30) K/uL Imm/Tot Granulo (auto) 0.2 % D-Dimer Quant (PE/DVT) 0.31 (0.00-0.50) ug/ml Sodium 140 (135-149) mmol/L Potassium 3.5 L (3.6-5.1) mmol/L Chloride 105 (96-114) mmol/L Carbon Dioxide 25 (20-32) mmol/L Anion Gap 10 (7-15) mEq/L BUN 18 (5-24) mg/dL Creatinine 0.9 (0.5-1.5) mg/dL Estimated Creat Clear 105.35 Estimated GFR 116 ml/min Glucose 102 (60-115) mg/dL Calcium 9.2 (8.4-10.6) mg/dL Total Bilirubin 1.7 H (0.1-1.5) mg/dL AST 26 (12-35) U/L ALT 31 (4-50) U/L Alkaline Phosphatase 60 (40-150) U/L Total Protein 8.0 (6.0-8.3) g/dL Albumin 4.7 (3.3-5.0) g/dL POC Troponin I 0.00 L (0.01-0.04) ng/ml Imaging Data Chest x-ray: Attestation: I have reviewed the pertinent imaging results. My impression: No evidence of infiltrates or widened mediastinum. Radiologist's impression: The lungs are clear. The heart, mediastinum and pulmonary vessels are of normal size. There is no evidence of pleural disease. IMPRESSION: Negative chest. Venous US: Attestation: I have reviewed the pertinent imaging results. Radiologist's impression: ommon femoral vein: Nonocclusive thrombus is seen, including partial extension into the saphenofemoral junction. Femoral vein: Nonocclusive thrombus is seen proximally in the femoral vein and within the deep femoral vein. Popliteal vein: No evidence of thrombus. Calf veins: Patent. Impression: Nonocclusive deep vein thrombus is seen in the right common femoral vein (excluding partial extension into the saphenofemoral junction) and proximal superficial femoral and deep femoral veins. Given findings on CT 08/06/2023 and ultrasound 05/09/2023, findings may represent chronic residual thrombus. ECG Data Attestation: I personally reviewed and interpreted this ECG as follows: ECG interpretation date: 12/12/23 Interpretation: EKG by my read shows sinus rhythm at a rate of 61. I do not note any acute ST or T-wave changes. QT and TN intervals within normal limits. Discharge Plan Discharge Clinical Impression: Atypical chest pain Patient Disposition: Home, Self-Care Condition: Improved Additional Instructions: Ibuprofen or Tylenol may be used for chest discomfort. Would recommend follow-up with your primary MD as needed. If you have recurrence of symptoms please return to the emergency room for further evaluation. Because you are having her blood drawn today I did add a lupus anticoagulant test. Your doctor can access the results. Prescriptions: No Action No Known Home Medications Follow Up/Referrals: Provider,Not a Local [Primary Care Provider] - Stand Alone Forms: [employer] Info Instructions
--- NOTE | 2023-12-12 15:22 | CRLHL7_ITS ---
For Patients: As a result of the Century Cures Act, medical imaging exams and procedure reports are released immediately into your electronic medical record. You may view this report before your referring provider. If you have questions, please contact your health care provider. Indication: hx of DVT right leg, chest pain Technique: Real-time longitudinal and transverse sonographic grayscale imaging with and without compression, as well as color and duplex Doppler imaging before and after augmentation, was obtained of the deep system of the right lower extremity, including the common femoral, femoral, popliteal, posterior tibial, and peroneal veins. Comparison: 08/06/2023, 05/09/2023 Findings: Common femoral vein: Nonocclusive thrombus is seen, including partial extension into the saphenofemoral junction. Femoral vein: Nonocclusive thrombus is seen proximally in the femoral vein and within the deep femoral vein. Popliteal vein: No evidence of thrombus. Calf veins: Patent. Impression: Nonocclusive deep vein thrombus is seen in the right common femoral vein (excluding partial extension into the saphenofemoral junction) and proximal superficial femoral and deep femoral veins. Given findings on CT 08/06/2023 and ultrasound 05/09/2023, findings may represent chronic residual thrombus. Findings discussed with Dr. Kelli Gross at 4:55 p.m. on 12/12/2023. Dictated by Jian Brown MD @ 12/12/2023 5:01:45 PM (Electronically Signed)
--- NOTE | 2023-12-12 15:23 | CRLHL7_ITS ---
For Patients: As a result of the Century Cures Act, medical imaging exams and procedure reports are released immediately into your electronic medical record. You may view this report before your referring provider. If you have questions, please contact your health care provider. Indication: : Left-sided chest pain TECHNIQUE : Single-view chest. FINDINGS: The lungs are clear. The heart, mediastinum and pulmonary vessels are of normal size. There is no evidence of pleural disease. IMPRESSION: Negative chest. Left-sided chest pain Dictated by Kat Vigil MD @ 12/12/2023 3:57:09 PM (Electronically Signed)
[2023-12-12 15:48] LABS: Eosinophils Absolute Auto 0.07 K/uL (0.00-0.50); Eosinophils Percent Auto 1.2 % (0.0-7.0); Hematocrit 48.3 % (37.0-53.0); Hemoglobin* 16.7 gm/dL (13.5-17.5); Immature Granulocytes Abs Auto 0.01 K/uL (0.00-0.30); Immature Granulocytes Pct Auto 0.2 %; Lymphocytes Absolute Auto 1.64 K/uL (0.90-2.90); Lymphocytes Percent Auto 27.8 % (20-44); Mean Corpuscular HGB Conc 35 gm/dL (32-36); Mean Corpuscular Hemoglobin 29 pg (26-34); Mean Corpuscular Volume 85 fL (80-100); Monocytes Percent Auto 7.3 % (0.0-11.0); Neutrophils Absolute Auto 3.75 K/uL (1.7-7.0); Neutrophils Percent Auto 63.5 % (42.0-72.0); Platelet Count* 162 K/uL (140-440); RDW Coefficient of Variation % 12.5 % (11.5-15.5); Red Blood Count 5.71 m/uL (4.30-5.90)
[2023-12-12 15:50] LABS: Slide Review Reflex No
[2023-12-12 16:00] LABS: Albumin* 4.7 g/dL (3.3-5.0); Chloride* 105 mmol/L (96-114)
[2023-12-12 16:01] LABS: Potassium* 3.5 mmol/L (3.6-5.1); Sodium* 140 mmol/L (135-149)
[2023-12-12 16:03] LABS: Anion Gap 10 mEq/L (7-15); Aspartate Amino Transferase* 26 U/L (12-35); Bilirubin Total* 1.7 mg/dL (0.1-1.5); Carbon Dioxide* 25 mmol/L (20-32); Creatinine* 0.9 mg/dL (0.5-1.5); Est. Creatinine Clearance* 105.35; Estimated Glomerular Filt Rate 116 ml/min
[2023-12-12 16:04] LABS: Alanine Aminotransferase* 31 U/L (4-50); Alkaline Phosphatase* 60 U/L (40-150); Blood Urea Nitrogen* 18 mg/dL (5-24); Calcium* 9.2 mg/dL (8.4-10.6); Glucose* 102 mg/dL (60-115)
[2023-12-12 16:05] LABS: D Dimer Quantitative* 0.31 ug/ml (0.00-0.50)
[2023-12-12] MEDS: KETOROLAC 15 MG/ML inj IVP (16:36)
[2023-12-31 02:44] LABS: Anti-Xa Qualitative Not Performed (Not Present); Anticoagulant Medication N Not Performed (Not Performed); Hexagonal Phospholipid Confirm Not Performed s (<=7.9); Neutralized PTT-LA Not Performed (<=1.20); Neutralized dRVVT Screen Not Performed (<=1.20); PTT-LA Ratio 0.94 (<=1.20); Prothrombin Time (PT) 14.4 s (12.0-15.5); Thrombin Time (TT) Not Performed s (<=19.5); dRVVT 1:1 Mix Ratio Not Performed (<=1.20); dRVVT Confirmation Not Performed (<=1.20); dRVVT Screen Ratio 0.92 (<=1.20)
== END 2023-12-12 18:40 | disposition home or self-care (01) ==
PROVIDERS: Emergency Provider Family Medicine
DX: R07.89 Other chest pain (principal)
CPT/HCPCS: 36415; 71045; 80053; 84484; 85025; 85379; 85520; 85525; 85598; 85610; 85613; 85670; 85730; 93971; 96374; 99284; 99285; J1885